=== PATIENT | female | born 1970 | race Caucasian/White ===

== ENCOUNTER → 2017-10-30 | Outpatient (CLI) | payer OTHER ==
[2017-10-31 21:08] LABS: HSV I DNA Negative (Negative)
[2017-11-01 07:11] LABS: HSV II DNA Negative (Negative)
== END ==
LOC: OD 11:35
PROVIDERS: ATTEND Nurse Practitioner Acute Care
DX: R23.8 Other skin changes (principal)
CPT/HCPCS: 36415; 87070; 87077; 87186; 87205; 87529

== ENCOUNTER 2019-03-18 19:36 | Emergency (ER) | payer OTHER ==
[2019-03-18] MEDS ORDERED: HYDROCODONE/ACETAMINOPHEN 5-325 MG TABLET PO ONE (20:40)
--- NOTE | 2019-03-18 20:42 | ER Document Report ---
ED General - General Chief Complaint: Ankle Injury Stated Complaint: FALL/RIGHT ANKLE INJURY Time Seen by Provider: 03/18/19 20:34 Primary Care Provider: LAURA COVINGTON NP [NURSE PRACTITIONER] - Follow up as needed MORGAN GOMEZ MD [ACTIVE STAFF] - Follow up as needed Information source: Patient TRAVEL OUTSIDE OF THE [place] IN LAST 30 DAYS: No - HPI Onset: This afternoon Severity: Moderate Pain Level: 5 Context: 48 year old female arrives with complaints of right ankle injury earlier today. No fever or chills. She is unsure exactly how she fell. No knee pain. No foot pain. Seen at outside facility and referred here. Healthy post menopausal female. Exacerbated by: Movement, Walking Relieved by: Denies Similar symptoms previously: No Recently seen / treated by doctor: No - Related Data Allergies/Adverse Reactions: No Known Allergies Allergy (Unverified 01/31/12 08:19) Past Medical History - Social History Smoking Status: Never Smoker Chew tobacco use (# tins/day): No Frequency of alcohol use: None Drug Abuse: None Family History: None Patient has suicidal ideation: No Patient has homicidal ideation: No Past Surgical History: Reports: Hx SectionComment Only: Hx Orthopedic Surgery - Bone marrow donor - Immunizations Hx Diphtheria, Pertussis, Tetanus Vaccination: No Review of Systems - Review of Systems Constitutional: No symptoms reported EENT: No symptoms reported Cardiovascular: No symptoms reported Respiratory: No symptoms reported Gastrointestinal: No symptoms reported Genitourinary: No symptoms reported Female Genitourinary: No symptoms reported Musculoskeletal: See HPI, Joint pain Skin: No symptoms reported Hematologic/Lymphatic: No symptoms reported Neurological/Psychological: No symptoms reported Physical Exam - Vital signs Vitals: Temp Pulse Resp BP Pulse Ox 97.9 F 65 20 166/97 H 98 03/18/19 19:45 03/18/19 19:45 03/18/19 19:45 03/18/19 19:45 03/18/19 19:45 Interpretation: Normal - General General appearance: Appears well, Alert - HEENT Head: Normocephalic, Atraumatic Eyes: Normal Pupils: PERRL - Respiratory Respiratory status: No respiratory distress Chest status: Nontender Breath sounds: Normal Chest palpation: Normal - Cardiovascular Rhythm: Regular Heart sounds: Normal auscultation Murmur: No - Abdominal Inspection: Normal Distension: No distension Bowel sounds: Normal Tenderness: Nontender Organomegaly: No organomegaly - Back Back: Normal, Nontender - Extremities General upper extremity: Normal inspection, Nontender, Normal color, Normal ROM, Normal temperature General lower extremity: Normal inspection, Tender - sts and bruising to right ankle laterally. Nl pulse and good sensation., Normal color, Normal ROM, Normal temperature, Normal weight bearing. No: Dahlia's sign - Neurological Neuro grossly intact: Yes Cognition: Normal Orientation: AAOx4 [employer] Coma Scale Eye Opening: Spontaneous [employer] Coma Scale Verbal: Oriented [employer] Coma Scale Motor: Obeys Commands [employer] Coma Scale Total: 15 Speech: Normal Motor strength normal: LUE, RUE, LLE, RLE Sensory: Normal - Psychological Associated symptoms: Normal affect, Normal mood - Skin Skin Temperature: Warm Skin Moisture: Dry Skin Color: Normal Course - Vital Signs Vital signs: Temp Pulse Resp BP Pulse Ox 98.0 F 62 20 141/80 H 96 03/18/19 21:48 03/18/19 21:48 03/18/19 21:48 03/18/19 21:48 03/18/19 21:48 Procedures - Immobilization Right Posterior Ankle Time completed: 22:00 Pre-Proc Neuro Vasc Exam: Normal Immobilizer type: Posterior ankle Performed by: Provider assisted Post-Proc Neuro Vasc Exam: Normal Alignment checked and good: Yes Discharge - Discharge Clinical Impression: Closed right fibular fracture Qualifiers: Encounter type: initial encounter Fibula location: distal physis (incl. Sal[place]) Qualified Code(s): S89.301A - Unspecified physeal fracture of lower end of right fibula, initial encounter for closed fracture Condition: Good Disposition: HOME, SELF-CARE Instructions: Semaj Wrap ([facility]), Use of Crutches ([facility]), Oral Narcotic Medication ([facility]) Additional Instructions: Rest, ice and elevate right ankle. Call Dr. Gomez's office tomorrow. Please return here for any problems or any concerns. Prescriptions: Polyethylene Glycol 3350 [Gavilax] 17 gm PO DAILY #14 powd.pack Hydrocodone Bit/Acetaminophen [Hydrocodon-Acetaminophen 5-325] 1 each PO TID #12 tablet Ondansetron [Zofran Odt 4 mg Tablet] 1 - 2 tab PO Q4H PRN #15 tab.rapdis PRN Reason: For Nausea/Vomiting Referrals: LAURA COVINGTON NP [NURSE PRACTITIONER] - Follow up as needed MORGAN GOMEZ MD [ACTIVE STAFF] - Follow up as needed
--- NOTE | 2019-03-18 21:21 | RADIOLOGY REPORT (SQ) ---
XR ANKLE 3 OR MORE VIEWS CLINICAL STATEMENT: pain/ injury COMPARISON: None FINDINGS: Mildly displaced distal fibular fracture. Mildly widened ankle mortise. Moderate diffuse soft tissue swelling. 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 IMPRESSION: Mildly displaced distal fibular fracture with widening of the ankle mortise.
[2019-03-18 21:56] VITALS: BP 141/80
== END 2019-03-18 21:56 | disposition home or self-care (01) ==
LOC: ER 19:36
PROC: 2W3QX1Z Immobilization of Right Lower Leg using Splint (ICD-10-PCS; principal; 2019-03-18)
DX: S89.301A Unspecified physeal fracture of lower end of right fibula, initial encounter for closed fracture (principal); M25.571 Pain in right ankle and joints of right foot; W19.XXXA Unspecified fall, initial encounter
CPT/HCPCS: 99283

== ENCOUNTER 2019-03-24 10:56 | Day surgery (SDC) | payer OTHER ==
[~2019-03-24 10:56] MED LIST: CEFAZOLIN SODIUM 2 GM in DEXTROSE 5%-WATER 100 ML IV PRN
[2019-03-24 11:39] LABS: APPEARANCE,URINE CLEAR; BILIRUBIN,URINE NEGATIVE (NEGATIVE); COLOR,URINE YELLOW; GLUCOSE, URINE NEGATIVE (NEGATIVE); KETONES,URINE NEGATIVE (NEGATIVE); LEUKOCYTE ESTERASE,URINE NEGATIVE (NEGATIVE); NITRITE,URINE NEGATIVE (NEGATIVE); PROTEIN,URINE NEGATIVE (NEGATIVE); URINE SPECIFIC GRAVITY 1.016; UROBILINOGEN,URINE NEGATIVE mg/dL (<2.0)
[2019-03-24 11:47] LABS: HEMATOCRIT 41.5 % (36.0-47.0); HEMOGLOBIN 14.1 g/dL (12.0-15.5); MEAN CORPUSCULAR HEMOGLOBIN 30.6 pg (27.0-33.4); MEAN CORPUSCULAR HGB CONC 33.8 g/dL (32.0-36.0); MEAN CORPUSCULAR VOLUME 90 fl (80-97); PLATELET COUNT 201 10^3/uL (150-450); RED CELL DISTRIBUTION WIDTH 12.9 % (11.5-14.0); WHITE BLOOD COUNT 5.9 10^3/uL (4.0-10.5)
--- NOTE | 2019-03-24 11:51 | RADIOLOGY REPORT (SQ) ---
EXAM DESCRIPTION: CHEST SINGLE VIEW COMPLETED DATE/TIME: 03/24/2019 11:30 am REASON FOR STUDY: PREOP COMPARISON: None. EXAM PARAMETERS: NUMBER OF VIEWS: One view. TECHNIQUE: Single frontal radiographic view of the chest acquired. RADIATION DOSE: NA LIMITATIONS: None. FINDINGS: LUNGS AND PLEURA: No opacities, masses or pneumothorax. No pleural effusion. MEDIASTINUM AND HILAR STRUCTURES: No masses. Contour normal. HEART AND VASCULAR STRUCTURES: Heart normal in size. Normal vasculature. BONES: No acute findings. HARDWARE: Mild dextroscoliosis. OTHER: No other significant finding. IMPRESSION: NO ACUTE RADIOGRAPHIC FINDING IN THE CHEST. TECHNICAL DOCUMENTATION: JOB ID: [id number] [employer]- All Rights Reserved Reading location - IP/workstation name: [email or web address]
[2019-03-24] MEDS ORDERED: FENTANYL CITRATE INJ/PF 100 MCG/2 ML AMPUL ONE ×2 (12:04→13:38)
[2019-03-24] MEDS ORDERED: PROPOFOL INJ 200 MG/20 ML VIAL IV ONE (12:04)
[2019-03-24] MEDS ORDERED: MIDAZOLAM 2 MG/2 ML INJ ONE (12:04)
[2019-03-24] MEDS ORDERED: ONDANSETRON HCL INJ/PF 4 MG/2 ML SDV ONE (12:04)
[2019-03-24] MEDS ORDERED: DEXAMETHASONE SOD PHOSPHATE INJ 4 MG/1 ML VIAL ONE (12:04)
[2019-03-24 12:09] LABS: ANION GAP 8 (5-19); BLOOD UREA NITROGEN 14 mg/dL (7-20); CALCIUM 9.6 mg/dL (8.4-10.2); CARBON DIOXIDE 28 mmol/L (22-30); CHLORIDE 107 mmol/L (98-107); GLUCOSE 82 mg/dL (75-110); POTASSIUM 4.1 mmol/L (3.6-5.0)
[2019-03-24] MEDS ORDERED: LIDOCAINE 0.5% INJ-PF (5 MG/ML) 50 ML SDV ONE (12:11)
[2019-03-24] MEDS ORDERED: ONDANSETRON HCL INJ/PF 4 MG/2 ML SDV IV PRN (12:48)
[2019-03-24] MEDS ORDERED: DIPHENHYDRAMINE HCL 50 MG/ML VIAL IV PRN (12:48)
[2019-03-24] MEDS ORDERED: PROMETHAZINE HCL INJ 25 MG/1 ML VIAL IV PRN ×2 (12:48)
[2019-03-24] MEDS ORDERED: MEPERIDINE HCL/PF INJ 25 MG/1 ML DISP.SYRIN IV PRN (12:48)
[2019-03-24] MEDS ORDERED: FENTANYL CITRATE INJ/PF 100 MCG/2 ML AMPUL IV PRN ×3 (12:48)
[2019-03-24] MEDS ORDERED: MORPHINE SULFATE 10 MG/ML INJ IV PRN (12:48)
[2019-03-24] MEDS ORDERED: BUPIVACAINE HCL 0.5 % INJ/PF 30 ML SDV ONE (13:02)
--- NOTE | 2019-03-24 13:06 | Discharge Summary ---
Discharge Summary (SDC) - Discharge Final Diagnosis: Right lateral malleolus fracture Date of Surgery: 03/24/19 Discharge Date: 03/24/19 Condition: Good Treatment or Instructions: Touchdown weightbearing right lower extremity Prescriptions: Oxycodone HCl/Acetaminophen [Percocet 5-325 mg Tablet] 1 tab PO Q6 PRN #25 tab PRN Reason: Referrals: GRECIA RAMOS FNP [Primary Care Provider] - Discharge Diet: Regular Respiratory Treatments at Home: Deep Breathing/Coughing Discharge Activity: Balance Activity w/Rest, No tub bath, Other - Touchdown weightbearing right lower extremity Home Care Assistance: None Needed Report the Following to Your Physician Immediately: Shortness of Breath, Fever over 101 Degrees, Drainage-Foul Smelling
--- NOTE | 2019-03-24 13:08 | Operative Report ---
Operative Report DATE OF SURGERY: 03/24/19 PREOPERATIVE DIAGNOSIS: Right lateral malleolus fracture OPERATION: Open reduction internal fixation right lateral malleolus fracture SURGEON: MORGAN GOMEZ ANESTHESIA: GA PROCEDURE: With the patient supine Afrin table the right lower extremities prepped and draped in sterile fashion. Limb is elevated for exsanguination. Tourniquet inflated 280 torr. A longitudinal incision made over the lateral surface of the distal fibula and sharp dissection was used carried incision down to the subperiosteal layer. There is elevated. The underlying fracture is visualized and reduced under direct visualization to an anatomic position. Is held with a lobster claw clamp. Subsequently a short titanium Toy distal fibula plate is applied to the lateral surface the the fibula and secured with a combination of locking and cortical screws. The position of the plate and the fracture reduction are checked fluoroscopically and 2 views and felt to be adequate. The tourniquet is deflated. The wound is irrigated with bulb lavage. Hemostasis obtained with electrocautery. Wound was closed in layers interrupted Vicryl followed by nylon. A sterile compressive dressing posterior plaster splint were applied and the patient's return to PACU in satisfactory condition.
[2019-03-24] MEDS ORDERED: BUPIVACAINE HCL 0.25 % INJ/PF (2.5 MG/1 ML) 30 ML VIAL INJ ONE (13:10)
--- NOTE | 2019-03-24 13:14 | EKG REPORT ---
SEVERITY:- NORMAL ECG - SINUS RHYTHM : Confirmed by: Brooks Whitehead MD 24-Mar-2019 13:13:03
[2019-03-24] MEDS ORDERED: OXYCODONE-ACETAMINOPHEN 5-325 MG TABLET ONE (14:26)
[2019-03-24 16:10] VITALS: BP 132/86
--- NOTE | 2019-03-24 16:13 | RADIOLOGY REPORT (SQ) ---
EXAM DESCRIPTION: ANKLE RIGHT AP/LATERAL; NO CHG FLUORO COMPLETED DATE/TIME: 03/24/2019 3:53 pm REASON FOR STUDY: ORIF RIGHT ANKLE ASST WITH FLUORO IN OR S82.61XA DISP FX OF LATERAL MALLEOLUS OF RIGHT FIBULA, INIT COMPARISON: None. FLUOROSCOPY TIME: 0 minutes. 2 image saved to PACS. TECHNIQUE: Intra-operative images acquired during surgical procedure to evaluate progress. NUMBER OF IMAGES: 2 LIMITATIONS: None. FINDINGS: AP and lateral fluoroscopic images of the right ankle were obtained during open reduction and internal fixation of an acute displaced fracture of the distal fibula with a fixation plate and s crews. IMPRESSION: IMAGE(S) OBTAINED DURING PROCEDURE. COMMENT: Quality ID [id number]: Final reports for procedures using fluoroscopy that document radiation exp osure indices, or exposure time and number of fluorographic images (if radiation exposure indices are not available) Please consult full operative report of the attending physician for description of the procedure. TECHNICAL DOCUMENTATION: JOB ID: [id number] [employer]- All Rights Reserved Reading location - IP/workstation name: [email or web address]
--- NOTE | 2019-03-24 16:13 | RADIOLOGY REPORT (SQ) ---
EXAM DESCRIPTION: ANKLE RIGHT AP/LATERAL; NO CHG FLUORO COMPLETED DATE/TIME: 03/24/2019 3:53 pm REASON FOR STUDY: ORIF RIGHT ANKLE ASST WITH FLUORO IN OR S82.61XA DISP FX OF LATERAL MALLEOLUS OF RIGHT FIBULA, INIT COMPARISON: None. FLUOROSCOPY TIME: 0 minutes. 2 image saved to PACS. TECHNIQUE: Intra-operative images acquired during surgical procedure to evaluate progress. NUMBER OF IMAGES: 2 LIMITATIONS: None. FINDINGS: AP and lateral fluoroscopic images of the right ankle were obtained during open reduction and internal fixation of an acute displaced fracture of the distal fibula with a fixation plate and s crews. IMPRESSION: IMAGE(S) OBTAINED DURING PROCEDURE. COMMENT: Quality ID 145: Final reports for procedures using fluoroscopy that document radiation exp osure indices, or exposure time and number of fluorographic images (if radiation exposure indices are not available) Please consult full operative report of the attending physician for description of the procedure. TECHNICAL DOCUMENTATION: JOB ID: [id number] [employer]- All Rights Reserved Reading location - IP/workstation name: [email or web address]
== END 2019-03-24 16:10 | disposition home or self-care (01) ==
LOC: OROUT 10:56
PROVIDERS: ATTEND Orthopaedic Surgery
DX: S82.61XA Displaced fracture of lateral malleolus of right fibula, initial encounter for closed fracture (principal); W19.XXXA Unspecified fall, initial encounter; Y92.69 Other specified industrial and construction area as the place of occurrence of the external cause; E03.9 Hypothyroidism, unspecified
CPT/HCPCS: 36415; 85027; 81025; 80048; 81001; 73600; 71045; 93005; 93010; 27792; C1713 ×5; J2250; J3490 ×2; J0690; J1100; J3010; J2405; J7060; J2704; 01830